=== PATIENT | male | born 1970 | race Caucasian/White ===

== ENCOUNTER 2022-09-22 10:36 | Emergency (ER) | payer BC ==
[2022-09-22] MEDS ORDERED: KETOROLAC 15 MG/ML 1 ML VIAL IM STA (11:08)
--- NOTE | 2022-09-22 11:10 | ED ---
Skin/Abscess/FB HPI - General Chief complaint: Skin/Abscess/Foreign Body Stated complaint: Facial abcess Time Seen by Provider: 09/22/22 11:00 Source: patient, family, RN notes reviewed, old records reviewed Mode of arrival: ambulatory Limitations: no limitations - History of Present Illness Initial comments: Nontoxic-appearing 51-year-old male presents to the emergency room with complaints of right sided facial swelling and pain. Patient states he has had similar episodes of cellulitis in the same area and was treated with clindamycin in May with complete recovery. No history of MRSA. Patient states he is here from out of town lives in [place]. Denies any fevers. No other lesions. No nausea vomiting or diarrhea. States there is no drainage. Denies dental pain. MD complaint: lesion (right facial/chin) -: days(s) (3) Tetanus Up to Date: yes Severity scale (1-10): 7 Quality: constant Consistency: constant Improves with: none Associated symptoms: denies other symptoms Treatments Prior to Arrival: other (Tylenol) - Related Data Previous Rx's Medication Instructions Recorded Clindamycin [Cleocin] 450 mg PO Q8H 7 Days #63 cap 09/22/22 Allergies Allergy/AdvReac Type Severity Reaction Status Date / Time No Known Allergies Allergy Verified 09/22/22 10:58 Review of Systems ROS Statement: Those systems with pertinent positive or pertinent negative responses have been documented in the HPI. ROS Other: All systems not noted in ROS Statement are negative. Past Medical History Past Medical History: Hypertension History of Any Multi-Drug Resistant Organisms: None Reported Past Surgical History: Hernia Repair, Orthopedic Surgery Past Psychological History: Anxiety Smoking Status: Current every day smoker Past Drug Use History: None Reported General Exam Limitations: no limitations General appearance: alert, in no apparent distress Head exam: Present: atraumatic, normocephalic Eye exam: Present: normal appearance. Absent: scleral icterus, conjunctival injection, periorbital swelling ENT exam: Present: normal oropharynx, mucous membranes moist Expanded Mouth exam: Present: tongue normal, tongue elevation. Absent: drooling, trismus, muffled voice Teeth exam: Absent: gingival enlargement Neck exam: Present: normal inspection, full ROM. Absent: tenderness, m eningismus Respiratory exam: Absent: respiratory distress, accessory muscle use Cardiovascular Exam: Present: regular rate Back exam: Present: normal inspection Neurological exam: Present: alert, oriented X3 Psychiatric exam: Present: normal affect, normal mood Skin exam: Present: warm, dry, erythema (Right side chin; 2 areas of dried scale approximately 2 mm, no drainage or drainable abscess). Absent: cyanosis, diaphoretic Course Vital Signs 09/22/22 09/22/22 10:55 12:08 Temperature 98.9 F 99 F Pulse Rate 96 90 Respiratory 16 18 Rate Blood Pressure 148/75 148/100 O2 Sat by Pulse 99 96 Oximetry Medical Decision Making - Medical Decision Making Well-appearing 51-year-old male presents with right-sided chin cellulitis for the past 3 days. Denies any fever. No nausea vomiting. Patient has had multiple similar episodes in the past in the same area. Last treated for this in May of this year in [place]. Leukocytosis at 11.1. Patient is afebrile. There is no evidence of a drainable abscess. No dental pain. No trismus. He was placed on clindamycin as he states that it has worked in the past. Directed to return to the emergency room if any concerning symptoms. Patient was given a take-home pack of tramadol for his pain. Patient is agreeable to this plan of care. Case discussed with Dr. Arreaag. - Lab Data Result diagrams: 09/22/22 11:19 09/22/22 11:19 Lab Results 09/22/22 09/22/22 Range/Units 11:19 11:19 WBC 11.1 H (3.8-10.6) k/uL RBC 4.80 (4.30-5.90) m/uL Hgb 16.2 (13.0-17.5) gm/dL Hct 44.3 (39.0-53.0) % MCV 92.3 (80.0-100.0) fL MCH 33.7 (25.0-35.0) pg MCHC 36.5 (31.0-37.0) g/dL RDW 13.5 (11.5-15.5) % Plt Count 196 (150-450) k/uL MPV 8.0 Neutrophils % 85 % Lymphocytes % 9 % Monocytes % 4 % Eosinophils % 1 % Basophils % 0 % Neutrophils # 9.4 H (1.3-7.7) k/uL Lymphocytes # 1.0 (1.0-4.8) k/uL Monocytes # 0.5 (0-1.0) k/uL Eosinophils # 0.1 (0-0.7) k/uL Basophils # 0.0 (0-0.2) k/uL Sodium 137 (137-145) mmol/L Potassium 3.8 (3.5-5.1) mmol/L Chloride 105 (98-107) mmol/L Carbon Dioxide 25 (22-30) mmol/L Anion Gap 7 mmol/L BUN 7 L (9-20) mg/dL Creatinine 0.84 (0.66-1.25) mg/dL Est GFR (CKD-EPI)AfAm >90 (>60 ml/min/1.73 sqM) Est GFR (CKD-EPI)NonAf >90 (>60 ml/min/1.73 sqM) Glucose 148 H (74-99) mg/dL Calcium 8.8 (8.4-10.2) mg/dL Disposition Clinical Impression: Facial cellulitis Disposition: HOME SELF-CARE Condition: Good Instructions (If sedation given, give patient instructions): Cellulitis (ED) Additional Instructions: Take antibiotics as prescribed, Tylenol and or Motrin as needed for any pain or discomfort. Follow-up with your primary care doctor this week. Return to the emergency room with any new or concerning symptoms including increased pain, persistent nausea and vomiting or fevers. Prescriptions: Clindamycin [Cleocin] 450 mg PO Q8H 7 Days #63 cap Is patient prescribed a controlled substance at d/c from ED?: No Referrals: None,Stated [Primary Care Provider] - 1-2 days Time of Disposition: 11:46
[2022-09-22 11:37] LABS: African American GFR (CKD) >90 (>60 ml/min/1.73 sqM); Anion Gap 7 mmol/L; Blood Urea Nitrogen 7 mg/dL (9-20); Calcium 8.8 mg/dL (8.4-10.2); Carbon Dioxide 25 mmol/L (22-30); Chloride 105 mmol/L (98-107); Glucose 148 mg/dL (74-99); Non-African American GFR(CKD) >90 (>60 ml/min/1.73 sqM); Potassium 3.8 mmol/L (3.5-5.1); Sodium 137 mmol/L (137-145)
[2022-09-22 11:40] LABS: Basophils % (A) 0 %; Eosinophils # (A) 0.1 k/uL (0-0.7); Eosinophils % (A) 1 %; HCT 44.3 % (39.0-53.0); HGB 16.2 gm/dL (13.0-17.5); Lymphocytes % (A) 9 %; MCH 33.7 pg (25.0-35.0); MCHC 36.5 g/dL (31.0-37.0); MCV 92.3 fL (80.0-100.0); Monocytes # (A) 0.5 k/uL (0-1.0); Monocytes % (A) 4 %; Neutrophils # (A) 9.4 k/uL (1.3-7.7); Neutrophils % (A) 85 %; Platelet Count 196 k/uL (150-450); RDW 13.5 % (11.5-15.5); WBC 11.1 k/uL (3.8-10.6)
[2022-09-22] MEDS ORDERED: traMADol 50 MG STARTER PACK 3 TAB BTL PO STA (11:46)
[2022-09-22 12:09] VITALS: BP 148/100; PULSE 90; RESP 18; TEMP 99
== END 2022-09-22 12:08 | disposition home or self-care (01) ==
LOC: EC 10:36
DX: L03.211 Cellulitis of face (principal); I10 Essential (primary) hypertension; F41.9 Anxiety disorder, unspecified; F17.200 Nicotine dependence, unspecified, uncomplicated
CPT/HCPCS: 36415; 80048; 85025; 99284; 96372; J1885

== ENCOUNTER → 2024-11-26 | Outpatient (CLI) | payer BC ==
[2024-11-26 14:59] LABS: HCT 48.2 % (39.6-50.0); HGB 16.4 g/dL (13.0-17.0); MCH 32.7 pg (27.0-32.0); Mean Platelet Volume 10.2 FL (9.5-12.2); NRBC Per 100 WBC 0 X 10*3/uL (0.00-0.01); Platelet Count 173 X 10*3/uL (140-440); RBC 5.02 X 10*6/uL (4.40-5.60); RDW 13.4 % (11.5-14.5); WBC 5.71 X 10*3/uL (4.50-10.00)
[2024-11-26 15:00] LABS: Basophils # (A) 0.05 X 10*3/uL (0.00-0.10); Basophils % (A) 0.9 %; Eosinophils # (A) 0.08 X 10*3/uL (0.04-0.35); Eosinophils % (A) 1.4 %; Lymphocytes # (A) 1.45 X 10*3/uL (0.90-5.00); Lymphocytes % (A) 25.4 %; Monocytes # (A) 0.42 X 10*3/uL (0.20-1.00); Monocytes % (A) 7.4 %; Neutrophils # (A) 3.69 X 10*3/uL (1.80-7.70); Neutrophils % (A) 64.5 %
[2024-11-26 15:27] LABS: ALT 52 U/L (10-49); AST 50 U/L (14-35); Albumin 4.3 g/dL (3.8-4.9); Albumin/Globulin Ratio 1.54 Ratio (1.60-3.17); Alkaline Phosphatase 82 U/L (41-126); BUN/Creat Ratio 12.44 Ratio (12.00-20.00); Blood Urea Nitrogen 11.2 mg/dL (9.0-27.0); Calcium 9.2 mg/dL (8.7-10.3); Carbon Dioxide 22.6 mmol/L (21.6-31.8); Chloride 104 mmol/L (96-109); Chol/HDL Ratio 4.95 Ratio; Globulin 2.8 g/dL (1.6-3.3); Glucose 115 mg/dL (70-110); Potassium 4.1 mmol/L (3.5-5.5); Sodium 140 mmol/L (135-145); Total Bilirubin 0.5 mg/dL (0.3-1.2); Total Protein 7.1 g/dL (6.2-8.2)
== END | disposition home or self-care (01) ==
LOC: LABWHC1 09:21
DX: I10 Essential (primary) hypertension (principal); F10.90 Alcohol use, unspecified, uncomplicated; R53.83 Other fatigue
CPT/HCPCS: 36415; 80053; 80061; 82306; 82607; 82746; 83036; 83721; 84402; 84443; 85025